=== PATIENT | female | born 1960 | race Caucasian/White ===

== ENCOUNTER 2022-07-13 15:17 | Emergency (ER) | payer OTHER, SELFPAY ==
[2022-07-13 15:28] VITALS: BP 132/83; PULSE 88; RESP 16; TEMP 38.2; O2SAT 100; BMI 28.5
--- NOTE | 2022-07-13 15:33 | ED.ABDPAIN ---
HPI - Abdominal Pain General Date Seen: 07/13/22 Chief Complaint: Abdominal Pain Stated Complaint: Stomach pain, upper abdomen Time Seen by Provider: 07/13/22 15:28 Source: patient, RN notes reviewed and old records reviewed Mode of arrival: ambulatory Limitations: no limitations History of Present Illness HPI narrative: Patient is a 61-year-old female referred from Urgent Care here in [place] for further evaluation of fever, epigastric abdominal pain and diarrhea. Patient was awoken from pain around midnight last night. She had nausea and heartburn sensation with a burning-type sensation in her mid upper abdomen. She states she actually had reflux during this time from about midnight to 3:00 a.m. she had the most severe pain she has ever had. She states she has had 4 children and this was far worse. During that time she was not sure she had a bowel movement or throw up. She did feel nauseated but never did have any emesis. She had her grand children overnight and thus could not come into the ER. She was having some intermittent chills and sweating overnight, she was unaware that she had a fever today. Around 6 she woke up again and started to have liquidy stools. She describes them as watery. She isn't having the nausea or the severe abdominal pain but has no appetite. She tried some crackers and made her feel worse. She has had maybe half can of theo mervat a little coffee this morning and some water. She still has some epigastric discomfort but certainly not like it was last night. She did not take anything thinking it might make her symptoms worse. She had surgery for ruptured appendectomy in 1968. Last colonoscopy was in March of 2021 with benign polypectomy per report she will use Tums couple times a week for p.r.n. reflux control. She does use some Aleve but reported that the last use was about 2 weeks ago and will use sporadically. She has not had any recent antibiotic use, no travel, no ill contacts. She has never had anything like this before. She has had for COVID vaccines. Denies any respiratory symptoms with this. She had a recent episode where she had 3-4 white bowel movements a 24 hour period and then returned to normal. That was towards the end of June. elicited complaint: abdominal pain Related Data Hx Last Menstrual Period: Postmenopausal Patient : No Home Medications Medication Instructions Recorded Confirmed No Known Home Medications 07/13/22 07/13/22 Allergies Allergy/AdvReac Type Severity Reaction Status Date / Time No Known Drug Allergies Allergy Verified 05/22/22 16:15 Review of Systems Status of ROS Reports: 10 or more systems reviewed and unremarkable except as noted in History and below [facility] Medical History (Updated 07/13/22 @ 19:20 by Tawana Dobson MD) Lymphadenitis Lymphadenitis, acute Social History Smoking Status: Never smoker Do you use any of these nicotine containing products: None Second hand tobacco smoke exposure: No How often do you have a drink containing alcohol: never How often do you have six or more drinks on one occasion: Never AUDIT-C Alcohol total score: 0 Non-prescribed substance use: denies use service: No Exam Const: Vital Signs, click to edit/add: Vital Signs - 24 hr 07/13/22 15:28 07/13/22 15:58 Temperature 100.7 F H Pulse Rate [Left P ulse Oximeter] 88 Respiratory Rate 16 Blood Pressure [Ri ght Upper Arm] 132/83 Pulse Oximetry 100 100 Oxygen Delivery Me thod Room Air Documenting provider has reviewed patient's vital signs: yes Common normals: no apparent distress, average body habitus, oriented x3, no limitations, healthy appearing, alert and well nourished General appearance: cooperative, comfortable and well kempt HENMT: Common normals: normocephalic, head/scalp atraumatic, hearing grossly normal bilaterally, external ears normal, external nose normal, nasal mucous membranes and turbinates normal, moist oral mucous membranes, oropharynx normal, dentition normal and gingiva normal Head and scalp: normocephalic and atraumatic Nose: external nose normal and nasal mucous membranes and turbinates normal External ear: external ears normal Throat: posterior oropharynx normal and uvula midline Eye: Common normals: PERRL, EOMs intact bilaterally, conjunctivae normal and no scleral icterus Conjunctiva: conjunctiva(e) normal Pupil: PERRL Neck & C-Spine: Common normals: full ROM, no lymphadenopathy, supple, no meningeal signs, no JVD and thyroid normal Thyroid: thyroid normal Resp: Common normals: normal respiratory effort, no retractions, no use of accessory muscles and clear to auscultation bilaterally Auscultation: clear to auscultation bilaterally Cardio: Common normals: no JVD, regular rate, regular rhythm, S1 normal heart sound, S2 normal heart sound, no gallops, no clicks and no murmurs Rate: regular rate Rhythm: regular rhythm Heart sounds: S1 normal and S2 normal GI: Common normals: Normal to inspection, nondistended, normoactive bowel sounds present, soft to palpation, no hepatosplenomegaly, no masses and no bruits Palpation: soft and no hepatosplenomegaly Other: Very mild epigastric tenderness without rebound or guarding. Extremity: Common normals: normal to inspection, full ROM, normal capillary refill, no joint enlargement, no clubbing, cyanosis or edema, no calf tenderness and no pedal edema Neuro: Common normals: oriented x3 Sensorium/orientation: alert Meningeal signs: no meningeal signs Psych: Appearance: well kempt Course Course Hospital Course: Will place an IV, initiated a L of IV fluids as she is likely behind and volume given her poor oral intake. She declines any pain medicine or nausea medicine at this time. Will get a full complement of labs we are going to proceed with CT abdomen and pelvis with IV contrast. This could be pancreas, gallbladder with cholecystitis. Other intra-abdominal etiology are possible including: Abnormalities both inflammatory or infectious. She does have a fever which would point to more of an infectious etiology at play. She is aware that we are going to screen for COVID as well as influenza. Given that she was having some reflux type symptoms will obtain an EKG and troponin to rule out any atypical coronary presentation/myocarditis/pericarditis. Reevaluation(s) Reevaluation #1: Reviewed with patient her labs, no concerning changes with the cell counts or the comprehensive metabolic panel. Reviewed that her influenza and COVID were negative. Did review that it is a possibility that the COVID could be negative falsely early on in disease. She understands. She states her stomach is actually feeling better but she is developing just a generalized headache. We are going to try 1000 mg oral Tylenol. We are waiting her CT abdomen pelvis with IV contrast to be read. Time: 17:46 Consultations Consultation #1: Did briefly call Dr. 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 We did review this, patient should hopefully resolve without difficulty. Did go on [employer] and reviewed this. It is possible to present with abdominal pain systemic illness with this and GI symptoms. Reviewed with patient it can be present for days to weeks for some, some can have development of more chronic issues with this. Hopefully that will not be the case for her. Time: 18:39 Vital Signs Vital signs: Initial Vital Signs Temperature 100.7 F H 07/13/22 15:28 Temperature Source Temporal Artery Scan 07/13/22 15:28 Pulse Rate 88 07/13/22 15:28 Pulse Rhythm 07/13/22 15:28 Pulse Strength 3+ Normal 07/13/22 15:28 Respiratory Rate 16 07/13/22 15:28 Blood Pressure 132/83 07/13/22 15:28 Blood Pressure Mean 99 07/13/22 15:28 Blood Pressure Position Sitting 07/13/22 15:28 Pulse Oximetry 100 07/13/22 15:28 Oxygen Delivery Method 07/13/22 15:28 Vital Signs Temperature 100.7 F H 07/13/22 15:28 Pulse Rate 88 07/13/22 15:28 Respiratory Rate 16 07/13/22 15:28 Blood Pressure 132/83 07/13/22 15:28 Pulse Oximetry 100 07/13/22 15:28 Oxygen Delivery Method 07/13/22 15:28 Temperature 100.7 F H 07/13/22 15:28 Pulse Rate 88 07/13/22 15:28 Respiratory Rate 16 07/13/22 15:28 Blood Pressure 132/83 07/13/22 15:28 Pulse Oximetry 100 07/13/22 15:58 Oxygen Delivery Method 07/13/22 15:28 MDM - Abdominal Pain Lab Data Attestation: I reviewed the patient's lab results. Labs: Lab Results 07/13/22 07/13/22 07/13/22 Range/Units 15:58 15:58 15:58 WBC 8.53 (4.50-11.00) K/uL RBC 4.64 (4.00-5.20) m/uL Hgb 14.4 (12.0-16.0) gm/dL Hct 42.9 (33.0-51.0) % MCV 93 (80-100) fL MCH 31 (26-34) pg MCHC 34 (32-36) gm/dL RDW Coeff of Eva 12.1 (11.5-15.5) % Plt Count 238 (140-440) K/uL Neut % (Auto) 88.7 H (42.0-72.0) % Lymph % (Auto) 6.8 L (20-44) % [place] % (Auto) 3.5 (0.0-11.0) % Eos % (Auto) 0.7 (0.0-7.0) % Baso % (Auto) 0.2 (0.0-3.0) % Neut # (Auto) 7.60 H (1.7-7.0) K/uL Lymph # (Auto) 0.60 L (0.90-2.90) K/uL [place] # (Auto) 0.30 (0.00-0.90) K/UL Eos # (Auto) 0.06 (0.00-0.50) K/uL Baso # (Auto) 0.02 (0.00-0.30) K/uL Abs Immat Gran (auto) 0.01 (0.00-0.30) K/uL Sodium (135-149) mmol/L Potassium (3.6-5.1) mmol/L Chloride (96-114) mmol/L Carbon Dioxide (20-32) mmol/L BUN (7-30) mg/dL Creatinine (0.5-1.5) mg/dL Estimated Creat Clear Estimated GFR ml/min Glucose (60-115) mg/dL Lactate 0.9 (0.5-1.9) mmol/L Calcium (8.4-10.6) mg/dL Total Bilirubin (0.1-1.5) mg/dL AST (12-35) U/L ALT (4-35) U/L Alkaline Phosphatase (40-150) U/L C-Reactive Protein (0.5-1.0) mg/dL Total Protein (6.0-8.3) g/dL Albumin (3.3-5.0) g/dL Lipase (23-300) U/L SARS-CoV-2 (PCR) Negative SARS-CoV-2 (Negative) Influenza Type A (PCR) Negative PCR FLU A (Negative) Influenza Type B (PCR) Negative PCR FLU B (Negative) POC Troponin I (0.01-0.04) ng/ml 07/13/22 07/13/22 Range/Units 15:58 16:05 WBC (4.50-11.00) K/uL RBC (4.00-5.20) m/uL Hgb (12.0-16.0) gm/dL Hct (33.0-51.0) % MCV (80-100) fL MCH (26-34) pg MCHC (32-36) gm/dL RDW Coeff of Eva (11.5-15.5) % Plt Count (140-440) K/uL Neut % (Auto) (42.0-72.0) % Lymph % (Auto) (20-44) % [place] % (Auto) (0.0-11.0) % Eos % (Auto) (0.0-7.0) % Baso % (Auto) (0.0-3.0) % Neut # (Auto) (1.7-7.0) K/uL Lymph # (Auto) (0.90-2.90) K/uL [place] # (Auto) (0.00-0.90) K/UL Eos # (Auto) (0.00-0.50) K/uL Baso # (Auto) (0.00-0.30) K/uL Abs Immat Gran (auto) (0.00-0.30) K/uL Sodium 137 (135-149) mmol/L Potassium 3.7 (3.6-5.1) mmol/L Chloride 103 (96-114) mmol/L Carbon Dioxide 23 (20-32) mmol/L BUN 10 (7-30) mg/dL Creatinine 0.7 (0.5-1.5) mg/dL Estimated Creat Clear 51.02 Estimated GFR 98 ml/min Glucose 95 (60-115) mg/dL Lactate (0.5-1.9) mmol/L Calcium 9.1 (8.4-10.6) mg/dL Total Bilirubin 0.7 (0.1-1.5) mg/dL AST 31 (12-35) U/L ALT 25 (4-35) U/L Alkaline Phosphatase 87 (40-150) U/L C-Reactive Protein 1.3 H (0.5-1.0) mg/dL Total Protein 7.4 (6.0-8.3) g/dL Albumin 4.6 (3.3-5.0) g/dL Lipase 26 (23-300) U/L SARS-CoV-2 (PCR) (Negative) Influenza Type A (PCR) (Negative) Influenza Type B (PCR) (Negative) POC Troponin I 0.00 L (0.01-0.04) ng/ml Imaging Data CT scan - abdomen: Attestation: I have reviewed the pertinent imaging results. Radiologist's impression: Patient: JOCELYN VERONICA Facility:?[facility] Patient ID:?[id number] Site Patient ID:?[id number]. Site :?[id number] Study:?CT Abdomen/Pelvis W/IV ONLY-07/13/2022 5:43:16 PM Ordering Physician:?Bronson Gilliam Final Report: INDICATION: Fever, diarrhea. Epigastric pain. TECHNIQUE: CT abdomen and pelvis acquired with 81 mL Isovue 370 contrast. COMPARISON: None available. FINDINGS: Lower chest: No focal consolidation. Liver: Too small to characterize hypodense hepatic lesions, likely benign in the absence of a known malignancy. Gallbladder and bile ducts: Unremarkable. Pancreas: Unremarkable. Spleen: Unremarkable. Adrenal glands: Unremarkable. Kidneys: Kidneys enhance symmetrically, without hydronephrosis. Too small to characterize hypodense left renal lesion. Retroperitoneum: No lymphadenopathy. Bowel and mesentery: Bowel is nonobstructed. Appendix is not identified, no right lower quadrant inflammatory changes are present. No significant ascites. Stomach is decompressed, suboptimally evaluated. No pneumoperitoneum. 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 Bladder: Unremarkable for degree of distension. Reproductive organs: Unremarkable. Pelvic lymph nodes: No lymphadenopathy. Vessels: Unremarkable. Abdominal wall: No acute abdominal wall abnormality. Bones: Multilevel degenerative changes of the spine. No suspicious/aggressive focal osseous lesion. IMPRESSION: 1. 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 2. Nonobstructed bowel. Please note that all CT scans at this facility use dose modulation, iterative reconstruction, and/or weight-based dosing when appropriate to reduce radiation dose to as low as reasonably achievable. Dictated by Melquiades Patel MD @ 07/13/2022 6:34:45 PM (Electronic Signature) ECG Data Attestation: I personally reviewed and interpreted this ECG as follows: (Sinus rhythm, 79 beats per minute, no acute ischemia. QT corrected 405 milliseconds.) Prior ECG tracings: not available for review Critical Care Time Critical Care Time Critical Care Time: No Discharge Plan Discharge Clinical Impression: Sclerosing mesenteritis Condition: Stable Additional Instructions: Start with clear fluids, try to stay hydrated. Recommend small frequent sips every 5-10 minutes while you are awake. Can use Tylenol and/or ibuprofen if needed for any abdominal discomfort or fever. The diarrhea is very likely from this as well. I would not recommend Imodium at this point and would let this take its course. Recheck in clinic in the next 3-5 days. Otherwise, if your abdominal pain is severe, have vomiting or worsening diarrhea, feel like your becoming dehydrated or unable to take orals in, do request to return for re-evaluation. You may advance your diet as tolerated as you feel better. Activity Level: Activity as Tolerated Prescriptions: No Action No Known Home Medications Follow Up/Referrals: Nel Ervin PA-C [Primary Care Provider] - Stand Alone Forms: MySupportAssistant Info Instructions
--- NOTE | 2022-07-13 15:42 | CRLHL7_ITS ---
For Patients: As a result of the Century Cures Act, medical imaging exams and procedure reports are released immediately into your electronic medical record. You may view this report before your referring provider. If you have questions, please contact your health care provider. INDICATION: Fever, diarrhea. Epigastric pain. TECHNIQUE: CT abdomen and pelvis acquired with 81 mL Isovue 370 contrast. COMPARISON: None available. FINDINGS: Lower chest: No focal consolidation. Liver: Too small to characterize hypodense hepatic lesions, likely benign in the absence of a known malignancy. Gallbladder and bile ducts: Unremarkable. Pancreas: Unremarkable. Spleen: Unremarkable. Adrenal glands: Unremarkable. Kidneys: Kidneys enhance symmetrically, without hydronephrosis. Too small to characterize hypodense left renal lesion. Retroperitoneum: No lymphadenopathy. Bowel and mesentery: Bowel is nonobstructed. Appendix is not identified, no right lower quadrant inflammatory changes are present. No significant ascites. Stomach is decompressed, suboptimally evaluated. No pneumoperitoneum. 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 Bladder: Unremarkable for degree of distension. Reproductive organs: Unremarkable. Pelvic lymph nodes: No lymphadenopathy. Vessels: Unremarkable. Abdominal wall: No acute abdominal wall abnormality. Bones: Multilevel degenerative changes of the spine. No suspicious/aggressive focal osseous lesion. IMPRESSION: 1. 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 2. Nonobstructed bowel. Please note that all CT scans at this facility use dose modulation, iterative reconstruction, and/or weight-based dosing when appropriate to reduce radiation dose to as low as reasonably achievable. Dictated by Melquiades Patel MD @ 07/13/2022 6:34:45 PM (Electronically Signed)
[2022-07-13 15:58] VITALS: O2SAT 100
[2022-07-13 16:17] LABS: Lactate* 0.9 mmol/L (0.5-1.9)
[2022-07-13 16:20] LABS: Basophils Absolute Auto 0.02 K/uL (0.00-0.30); Basophils Percent Auto 0.2 % (0.0-3.0); Eosinophils Absolute Auto 0.06 K/uL (0.00-0.50); Eosinophils Percent Auto 0.7 % (0.0-7.0); Hematocrit 42.9 % (33.0-51.0); Hemoglobin* 14.4 gm/dL (12.0-16.0); Immature Granulocytes Abs Auto 0.01 K/uL (0.00-0.30); Lymphocytes Percent Auto 6.8 % (20-44); Mean Corpuscular HGB Conc 34 gm/dL (32-36); Mean Corpuscular Hemoglobin 31 pg (26-34); Mean Corpuscular Volume 93 fL (80-100); Monocytes Percent Auto 3.5 % (0.0-11.0); Neutrophils Percent Auto 88.7 % (42.0-72.0); Platelet Count* 238 K/uL (140-440); RDW Coefficient of Variation % 12.1 % (11.5-15.5); Red Blood Count 4.64 m/uL (4.00-5.20); White Blood Count* 8.53 K/uL (4.50-11.00)
[2022-07-13 16:22] LABS: Slide Review Reflex No
[2022-07-13] MEDS: 0.9 % SODIUM CHLORIDE 1000 ml 1,000 ML 500 ML IV (16:31)
[2022-07-13 16:48] LABS: Albumin* 4.6 g/dL (3.3-5.0); Chloride* 103 mmol/L (96-114)
[2022-07-13 16:49] LABS: Potassium* 3.7 mmol/L (3.6-5.1); Sodium* 137 mmol/L (135-149)
[2022-07-13 16:51] LABS: Creatinine* 0.7 mg/dL (0.5-1.5); Est. Creatinine Clearance* 51.02; Estimated Glomerular Filt Rate 98 ml/min
[2022-07-13 16:52] LABS: Alanine Aminotransferase* 25 U/L (4-35); Alkaline Phosphatase* 87 U/L (40-150); Aspartate Amino Transferase* 31 U/L (12-35); Bilirubin Total* 0.7 mg/dL (0.1-1.5); Blood Urea Nitrogen* 10 mg/dL (7-30); Calcium* 9.1 mg/dL (8.4-10.6); Carbon Dioxide* 23 mmol/L (20-32); Glucose* 95 mg/dL (60-115); Lipase* 26 U/L (23-300); Total Protein* 7.4 g/dL (6.0-8.3)
[2022-07-13 16:55] LABS: C Reactive Protein* 1.3 mg/dL (0.5-1.0)
[2022-07-13 17:11] LABS: PCR FLU A Negative PCR FLU A (Negative); PCR FLU B Negative PCR FLU B (Negative)
[2022-07-13 17:19] LABS: SARS PCR* Negative SARS-CoV-2 (Negative)
[2022-07-13] MEDS: ACETAMINOPHEN 500 MG TABLET 1000 MG PO (18:00)
== END 2022-07-13 19:30 | disposition home or self-care (01) ==
PROVIDERS: Emergency Provider Family Medicine; PCP Physician Assistant Medical
DX: K65.4 Sclerosing mesenteritis (principal)
CPT/HCPCS: 36415; 74177; 80053; 83605; 83690; 84484; 85025; 86140; 87631; 93005; 94761; 99284; 99285; A9270; J7030; Q9967